=== PATIENT | female | born 1990 | race Caucasian/White ===

== ENCOUNTER 2020-01-19 19:57 | Emergency (ER) | payer MEDICAID ==
--- NOTE | 2020-01-19 20:35 | CR ---
PROCEDURE INFORMATION: Exam: XR Right Ankle Exam date and time: 01/19/2020 8:16 PM Age: 29 years old Clinical indication: Other: Patient ; Additional info: Fall pain TECHNIQUE: Imaging protocol: XR Right ankle. Views: 1 or 2 views. COMPARISON: No relevant prior studies available. FINDINGS: Bones/joints: No acute fracture. No dislocation. Normal bone mineralization. No joint effusion. Joint spaces are maintained. Soft tissues: No soft tissue swelling. No radiopaque foreign body. IMPRESSION: No acute fracture. Followup imaging recommended in 7-14 days if clinical concern for fracture persists.
--- NOTE | 2020-01-19 20:35 | CR ---
PROCEDURE INFORMATION: Exam: XR Right Foot Exam date and time: 01/19/2020 8:15 PM Age: 29 years old Clinical indication: Other: Pain; Additional info: Fall TECHNIQUE: Imaging protocol: XR Right foot. Views: 1 or 2 views. COMPARISON: No relevant prior studies available. FINDINGS: Bones/joints: No acute fracture. No dislocation. Normal bone mineralization. No joint effusion. Joint spaces are maintained. Soft tissues: No soft tissue swelling. No radiopaque foreign body. IMPRESSION: No acute fracture. Followup imaging recommended in 7-14 days if clinical concern for fracture persists.
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
== END 2020-01-19 20:57 | disposition home or self-care (01) ==
LOC: DL.ED 19:57
DX: O9A.212 Injury, poisoning and certain other consequences of external causes complicating pregnancy, second trimester (principal); S93.401A Sprain of unspecified ligament of right ankle, initial encounter; S80.00XA Contusion of unspecified knee, initial encounter; Z3A.24 24 weeks gestation of pregnancy; W19.XXXA Unspecified fall, initial encounter
CPT/HCPCS: 73600-RT; 73620-RT; 99283

== ENCOUNTER 2020-04-30 21:21 | Emergency (ER) | payer MEDICAID ==
--- NOTE | 2020-04-30 22:13 | EDM.PDOC ---
<Talib John - Last Filed: 04/30/20 23:05> ED HPI GENERAL MEDICAL PROBLEM - General Chief Complaint: Lower Extremity Injury/Pain Stated Complaint: LEFT FOOT IS SWOLLEN Time Seen by Provider: 04/30/20 21:30 Source of Information: Reports: Patient History Limitations: Reports: No Limitations - History of Present Illness INITIAL COMMENTS - FREE TEXT/NARRATIVE: Patient is a 30 y/o female who presents to the ED complaining of asymmetric leg swelling, left greater than right. Patient is 38w6d with her eighth child. She has had some bilateral leg swelling for the last week or so. Swelling has been equal on both sides up until tonight when she noticed her left leg was more swollen than the right. She also describes some pain in her mid anterior thigh, described as a soreness, that has now self resolved. She attributes it to sitting wrong. She denies any chest pain. She has been somewhat short of breath with activity, but nothing out of the ordinary for late per her estimation. She does have a history of asthma, required use of her inhaler a couple days ago. She denies any recent periods of prolonged immobilization. Most recent long car trip was at 34w [place], states her stopped every hour so she could ambulate for 15 minutes. No personal history of blood clots. No history of pre-eclampsia with prior pregnancies. She has been feeling adequate movements. Denies any vaginal bleeding or LOF. No headache, vision change, or upper abdominal pain. Takes vitamins, no other meds. 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, Psychiatric History: Reports: Anxiety Hematologic History: Reports: Anemia - Past Surgical History Respiratory Surgical History: Reports: None Dermatological Surgical History: Reports: None Social & Family History - Family History Family Medical History: Noncontributory - Tobacco Use Smoking Status *Q: Never Smoker Second Hand Smoke Exposure: No - Caffeine Use Caffeine Use: Reports: None - Recreational Drug Use Recreational Drug Use: No Review of Systems - Review of Systems Review Of Systems: See Below Constitutional: Denies: Chills, Fever Eyes: Denies: Vision Change Ears: Reports: No Symptoms Nose: Reports: No Symptoms Mouth/Throat: Reports: No Symptoms Respiratory: Reports: Shortness of Breath. Denies: Pleuritic Chest Pain Cardiovascular: Reports: Edema. Denies: Chest Pain GI/Abdominal: Reports: Abdominal Pain. Denies: Constipation, Diarrhea, Nausea, Vomiting Genitourinary: Denies: Dysuria Musculoskeletal: Denies: Leg Pain, Foot Pain Skin: Denies: Rash Neurological: Denies: Headache ED EXAM, GENERAL - Physical Exam Exam: See Below Exam Limited By: No Limitations General Appearance: Alert, WD/WN, No Apparent Distress Eye Exam: Bilateral Eye: EOMI, PERRL Head: Atraumatic, Normocephalic Neck: Supple, Non-Tender Respiratory/Chest: No Respiratory Distress, Lungs Clear, Normal Breath Sounds, No Accessory Muscle Use. No: Crackles, Rales, Rhonchi, Wheezing Cardiovascular: Regular Rate, Rhythm. No: No Murmur, No Rub Peripheral Pulses: 2+: Radial (L), Radial (R), Dorsalis Pedis (L), Dorsalis Pedis (R) GI/Abdominal: Normal Bowel Sounds, Soft, Non-Tender, No Distention, Other (Gravid). No: Guarding Extremities: Normal Range of Motion, Non-Tender, Pedal Edema (1-2+ pretibial pitting edema on left, scant on the right). No: Shabnam's Sign, Leg Pain, Increased Warmth Neurological: Alert, Oriented, Normal Cognition, Normal Reflexes Psychiatric: Normal Affect, Normal Mood Skin Exam: Warm, Dry Course - Re-Assessments/Exams Free Text/Narrative Re-Assessment/Exam: 04/30/20 23:13 Patient updated with US results showing no evidence of DVT. She is reassured and in favor of discharge home. Return criteria discussed. She is discharged home in stable condition. Departure - Departure Time of Disposition: 23:13 Disposition: Home, Self-Care 01 Condition: Good Clinical Impression: Third trimester , Edema of left lower extremity - Discharge Information *PRESCRIPTION DRUG MONITORING PROGRAM REVIEWED*: Not Applicable *COPY OF PRESCRIPTION DRUG MONITORING REPORT IN PATIENT ALEXA: Not Applicable Instructions: Exercise During Forms: ED Department Discharge Sepsis Event Note (ED) - Evaluation Sepsis Screening Result: No Definite Risk - Assessment/Plan Assessment:: Patient has asymmetric pitting edema L>R, venous ultrasound of the left lower extremity was ordered which shows no evidence of deep venous thrombosis. Etiology of edema is undetermined, likely positional compression of venous system related to late stage of . No red flag signs or symptoms that necessitate further workup. Plan: Patient provided reassurance and discharged to home. Discussed signs and symptoms of DVT, return criteria. She voices understanding and agreement and is comfortable with and in favor of discharging home. Follow up with OB provider as scheduled. <Lei Chopra - Last Filed: 04/30/20 23:22> Course - Vital Signs Last Recorded V/S: Last Vital Signs Temp 37.0 C 04/30/20 21:35 Pulse 98 04/30/20 21:35 Resp 20 04/30/20 21:35 BP 128/82 04/30/20 21:35 Pulse Ox 99 04/30/20 21:35 - Re-Assessments/Exams Free Text/Narrative Re-Assessment/Exam: 04/30/20 23:22 I have examined the patient. I have discussed findings and treatment plan with the resident. I agree with the assessment and plan in the following residents note. Sepsis Event Note (ED) - Focused Exam Vital Signs: Vital Signs Temp Pulse Resp BP Pulse Ox 04/30/20 21:35 37.0 C 98 20 128/82 99
--- NOTE | 2020-04-30 22:51 | US ---
PROCEDURE INFORMATION: Exam: US Duplex Left Lower Extremity Veins, Limited Exam date and time: 04/30/2020 10:24 PM Age: 30 years old Clinical indication: Edema, localized; Lower extremity, left; Patient HX: 39w left leg swelling; Additional info: Unilateral pitting edema TECHNIQUE: Imaging protocol: Real-time Duplex ultrasound of the Left Lower Extremity with 2-D kendrick scale, color Doppler flow and spectral waveform analysis with image documentation. Limited exam focused on the left lower extremity veins. COMPARISON: No relevant prior studies available. FINDINGS: Left deep veins: Unremarkable. The common femoral, femoral, proximal profunda femoral and popliteal veins are patent without thrombus. Normal Doppler waveforms. Normal compressibility and/or augmentation response. Left superficial veins: Unremarkable. Saphenofemoral junction is patent without thrombus. Soft tissues: Edema of the subcutaneous tissues of the left leg. IMPRESSION: No evidence of deep vein thrombosis.
== END 2020-04-30 23:24 | disposition home or self-care (01) ==
LOC: DL.ED 21:21
DX: O99.89 Other specified diseases and conditions complicating pregnancy, childbirth and the puerperium (principal); R60.0 Localized edema; O99.513 Diseases of the respiratory system complicating pregnancy, third trimester; J45.909 Unspecified asthma, uncomplicated; Z3A.38 38 weeks gestation of pregnancy
CPT/HCPCS: 93971; 99283-25

== ENCOUNTER 2020-05-03 23:29 | Inpatient (IN) | payer MEDICAID ==
[2020-05-04] MEDS ORDERED: Docusate Sodium 100 MG Cap PO PRN (00:37)
[2020-05-04] MEDS ORDERED: Zolpidem 5 MG Tab PO PRN (00:37)
[2020-05-04] MEDS ORDERED: Misoprostol 400 MCG (4 X 100 MCG TAB) RECTAL PRN (00:37)
[2020-05-04] MEDS ORDERED: Tranexamic Acid 1,000 MG in Sodium Chloride 0.9% 100 ML IV PRN (00:37)
[2020-05-04] MEDS ORDERED: Benzocaine/Menthol 20%-0.5% Spray 56 GM Canister TOP PRN (00:37)
[2020-05-04] MEDS ORDERED: Acetaminophen 325 MG Tab PO PRN (00:37)
[2020-05-04] MEDS ORDERED: Simethicone 80 MG Tab.Chew PO PRN (00:37)
[2020-05-04] MEDS ORDERED: Oxytocin 10 Units/1 ML SDV IM PRN (00:37)
[2020-05-04] MEDS ORDERED: Carboprost Tromethamine 250 MCG/1 ML Amp IM PRN (00:37)
[2020-05-04] MEDS ORDERED: Sodium Chloride 0.9% 10 ML Syringe FLUSH PRN (00:37)
--- NOTE | 2020-05-04 00:49 | PCM.LDHP ---
L&D History of Present Illness - General Date of Service: 05/03/20 Admit Problem/Dx: Admission Diagnosis/Problem Admission Diagnosis/Problem Source of Information: Patient - History of Present Illness Introduction:: Patient is a at 39w2d who presents to L&D for contractions. Contractions started around 6 PM this evening and increased in frequency. She is now adela every 1-2 minutes and feeling pressure. Baby was active throughout the day. She felt a gush of clear fluid around 11:10 PM this evening so decided to come in. Her has been uncomplicated. She is GBS negative. 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 All were delivered vaginally. Psychiatric History: Reports: Anxiety Hematologic History: Reports: Anemia - Past Surgical History HEENT Surgical History: Reports: Adenoidectomy, Tonsillectomy Respiratory Surgical History: Reports: None Female Surgical History: Reports: D&C Other Female Surgeries/Procedures: laparoscopy for endometriosis Dermatological Surgical History: Reports: None Social & Family History - Family History Family Medical History: Noncontributory Cardiac: Reports: Hypertension Oncologic: Reports: Breast, Ovarian - Tobacco Use Smoking Status *Q: Never Smoker - Caffeine Use Caffeine Use: Reports: None - Alcohol Use Alcohol Use History: No - Recreational Drug Use Recreational Drug Use: No Drug Use in Last 12 Months: No - Living Situation & Occupation 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 Denies: Lightheadedness Gastrointestinal: Denies: Diarrhea, Nausea, Vomiting Neurological: Denies: Dizziness, Headache, Numbness, Weakness L&D Exam - Exam Exam: See Below - OB Specific Contraction Intensity: Moderate to Strong Movement: Active Heart Tones: Present Heart Rate (FHR) Variability: Moderate (6-25 bmp) - Dia Score Dia Score Cervix Position: Anterior Dia Score Consistency: Soft Dia Score Effacement: >80% - Exam General: Alert, Oriented HEENT: Conjunctiva Clear, Posterior Pharynx Clear, Pupils Equal Neck: Supple, Trachea Midline Lungs: Clear to Auscultation, Normal Respiratory Effort Cardiovascular: Regular Rate, Regular Rhythm GI/Abdominal Exam: Soft, No Distention Extremities: Non-Tender, Pedal Edema (Minimal) Skin: Warm, Intact Neurological: Reflexes Equal Bilateral - Patient Data Lab Results Last 24 hrs: Laboratory Results - last 24 hr 05/04/20 Range/Units 00:00 WBC 9.9 (5.0-10.0) 10^3/uL RBC 4.34 (4.2-5.4) 10^6/uL Hgb 11.0 L (12.0-16.0) g/dL Hct 34.5 L (37.0-47.0) % MCV 79.5 L (80-100) fL MCH 25.3 L (27.0-34.0) pg MCHC 31.9 L (33.0-35.0) g/dL Plt Count 252 (150-450) 10^3/uL Result Diagrams: 05/04/20 00:00 - Problem List (1) History of oligohydramnios SNOMED Code(s): 993786536 ICD Code: Z87.59 - PERSONAL HISTORY OF COMP OF PREG, CHLDBRTH AND THE PUERP Status: Acute (2) History of prior with IUGR SNOMED Code(s): 882052742 ICD Code: Z87.59 - PERSONAL HISTORY OF COMP OF PREG, CHLDBRTH AND THE PUERP Status: Acute (3) History of delivery SNOMED Code(s): 031423148 ICD Code: Z87.51 - PERSONAL HISTORY OF PRE-TERM LABOR Status: Acute (4) History of cholestasis during SNOMED Code(s): 85202174777057793 ICD Code: Z87.59 - PERSONAL HISTORY OF COMP OF PREG, CHLDBRTH AND THE PUERP; Z87.19 - PERSONAL HISTORY OF OTHER DISEASES OF THE DIGESTIVE SYSTEM Status: Acute (5) Grand multipara SNOMED Code(s): 81175409 ICD Code: Z64.1 - PROBLEMS RELATED TO MULTIPARITY Status: Acute (6) Rubella immune SNOMED Code(s): 067015400 ICD Code: Z78.9 - OTHER SPECIFIED HEALTH STATUS Status: Acute (7) Rh negative, delivered, current hospitalization SNOMED Code(s): 160251080, 369342673 ICD Code: O26.899 - OTH RELATED CONDITIONS, UNSPECIFIED TRIMESTER; Z67.91 - UNSPECIFIED BLOOD TYPE, RH NEGATIVE Status: Acute (8) Anemia affecting SNOMED Code(s): 86258397 ICD Code: O99.019 - ANEMIA COMPLICATING , UNSPECIFIED TRIMESTER Status: Acute Problem List Initiated/Reviewed/Updated: Yes Orders Last 24hrs: Active Orders 24 hr Category Date Time Status Notify Provider Vital Signs OB [RC] ASDIRECTED Care 05/04/20 00:38 Ordered Up ad [place] [RC] ASDIRECTED Care 05/04/20 00:37 Ordered Vital Signs [RC] PFP Care 05/04/20 00:15 Ordered Regular Diet [DIET] Diet 05/04/20 Breakfast Ordered Regular Diet [DIET] Diet 05/04/20 Dinner Ordered Regular Diet [DIET] Diet 05/04/20 Lunch Ordered CBC W/O DIFF,HEMOGRAM [HEME] Routine Lab 05/04/20 00:38 Ordered CORONAVIRUS COVID-19 RAPID [MOLEC] Routine Lab 05/04/20 00:00 Received Acetaminophen [TylenoL] Med 05/04/20 00:37 Ordered 650 mg PO Q6H PRN Benzocaine/Menthol [Dermoplast Pain Relief Lane] Med 05/04/20 00:37 Ordered See Dose Instructions TOP Q4H PRN Carboprost Tromethamine [Hemabate DS] Med 05/04/20 00:37 Ordered 250 mcg IM ASDIRECTED PRN Docusate Sodium [Colace] Med 05/04/20 00:37 Ordered 100 mg PO BID PRN Ibuprofen [Motrin] Med 05/04/20 00:37 Ordered 800 mg PO Q8H PRN Oxytocin [Pitocin] Med 05/04/20 00:37 Ordered 10 unit IM ONETIME PRN Vit with Ca/FA/Iron [ Plus Iron] Med 05/04/20 09:00 Ordered 1 each PO DAILY Simethicone Med 05/04/20 00:37 Ordered 80 mg PO Q4H PRN Sodium Chloride 0.9% [Saline Flush] Med 05/04/20 00:37 Ordered 10 ml FLUSH ASDIRECTED PRN Tranexamic Acid [Cyklokapron] 1,000 mg Med 05/04/20 00:37 Ordered Sodium Chloride 0.9% [Normal Saline] 100 ml IV ONETIME Zolpidem [Ambien] Med 05/04/20 00:37 Ordered 5 mg PO BEDTIME PRN miSOPROStoL [Cytotec] Med 05/04/20 00:37 Ordered 800 mcg RECTAL ONETIME PRN witch Ryan [Medi-Pads] Med 05/04/20 00:37 Ordered 1 each TOP Q4HR PRN Assess Lochia [WOMSER] Per Unit Routine Oth 05/04/20 00:37 Ordered Assess Uterine Involution [WOMSER] Per Unit Routine Oth 05/04/20 00:37 Ordered Breast Pump [WOMSER] Per Unit Routine Oth 05/04/20 00:37 Ordered Ice Therapy [OM.PC] Per Unit Routine Oth 05/04/20 00:37 Ordered Perineal Care [OM.PC] Per Unit Routine Oth 05/04/20 00:37 Ordered Saline Lock Insert [OM.PC] Urgent Oth 05/04/20 00:37 Ordered Sitz Bath [OM.PC] Per Unit Routine Oth 05/04/20 00:37 Ordered Resuscitation Status Routine Resus Stat 05/04/20 00:37 Ordered Assessment/Plan Comment:: Admit to L&D. Patient progressed quickly, COVID test still pending. Patient did deliver healthy baby boy in triage room. See delivery note for further details. She did have an IV in and pitocin was started immediately after placenta delivered. Patient and baby transferred to regular room. Manisha Orellana MD
--- NOTE | 2020-05-04 00:57 | PCM.DEL ---
L & D Note - General Info Date of Service: 05/04/20 - Delivery Note Labor: Spontaneous Delivery Outcome: Livebirth Delivery Method: Spontaneous Vaginal Delivery-Single Presentation: Left Occiput Anterior (JEANNIE) Nuchal Cord: None Anesthesia Type: None Amniotic Fluid Description: Clear Laceration: None Placenta: Intact, Spontaneous Cord: 3 Vessels Estimated Blood Loss: 150 [place]: Bulb Syringe Score 1 min: 9 Delivery Comments (Free Text/Narrative):: Patient presents to L&D in active labor. Found to be 7/100/-1 on admission. An IV was placed. COVID test was collected and still pending so patient remained in triage room.She quickly progress to complete and was upon entering her room. A viable male infant was delivered over intact perineum. Apgars were 9 and 9. weight was 9 lbs 6 oz (LGA). The anterior shoulder was delivered with gentle traction. The infant was placenta the maternal abdomen and the cord was clamped and cut. Placenta was delivered intact via active management. Oxytocin was initiated immediately following the delivery of the placenta. Cervix, vagina, and perineum were explored and were found to be intact. Mother and were stable and remained in room. They were moved into regular room shortly after. - General Info Date of Service: 05/04/20 - Patient Data Lab Results Last 24 Hours: Laboratory Results - last 24 hr 05/04/20 Range/Units 00:00 WBC 9.9 (5.0-10.0) 10^3/uL RBC 4.34 (4.2-5.4) 10^6/uL Hgb 11.0 L (12.0-16.0) g/dL Hct 34.5 L (37.0-47.0) % MCV 79.5 L (80-100) fL MCH 25.3 L (27.0-34.0) pg MCHC 31.9 L (33.0-35.0) g/dL Plt Count 252 (150-450) 10^3/uL Med Orders - Current: Current Medications Acetaminophen (Tylenol) 650 mg PO Q6H PRN PRN Reason: mild pain or fever Benzocaine/Menthol (Dermoplast Pain Relief [place]) 0 gm TOP Q4H PRN PRN Reason: Perineal comfort measures Carboprost Tromethamine (Hemabate Ds) 250 mcg IM ASDIRECTED PRN PRN Reason: Excessive vaginal bleeding Docusate Sodium (Colace) 100 mg PO BID PRN PRN Reason: Constipation Tranexamic Acid 1,000 mg/ (Sodium Chloride) 110 mls @ 660 mls/hr IV ONETIME PRN PRN Reason: Bleeding Ibuprofen (Motrin) 800 mg PO Q8H PRN PRN Reason: Mild Pain or Fever Misoprostol (Cytotec) 800 mcg RECTAL ONETIME PRN PRN Reason: Hemorrhage Oxytocin (Pitocin) 10 unit IM ONETIME PRN PRN Reason: Bleeding Prenat Multivit/[place]/Iron/Folic Ac ( Plus Iron) 1 each PO DAILY DARRON Simethicone (Simethicone) 80 mg PO Q4H PRN PRN Reason: Gas Sodium Chloride (Saline Flush) 10 ml FLUSH ASDIRECTED PRN PRN Reason: Keep Vein Open Witch Maribell (Medi-Pads) 1 each TOP Q4HR PRN PRN Reason: Perineal Comfort Measure Zolpidem Tartrate (Ambien) 5 mg PO BEDTIME PRN PRN Reason: Insomnia - Problem List & Annotations (1) History of oligohydramnios SNOMED Code(s): 448255518 Code(s): Z87.59 - PERSONAL HISTORY OF COMP OF PREG, CHLDBRTH AND THE PUERP Status: Acute (2) History of prior with IUGR SNOMED Code(s): 350205923 Code(s): Z87.59 - PERSONAL HISTORY OF COMP OF PREG, CHLDBRTH AND THE PUERP Status: Acute (3) History of delivery SNOMED Code(s): 452342598 Code(s): Z87.51 - PERSONAL HISTORY OF PRE-TERM LABOR Status: Acute (4) History of cholestasis during SNOMED Code(s): 29654397810598650 Code(s): Z87.59 - PERSONAL HISTORY OF COMP OF PREG, CHLDBRTH AND THE PUERP; Z87.19 - PERSONAL HISTORY OF OTHER DISEASES OF THE DIGESTIVE SYSTEM Status: Acute (5) Grand multipara SNOMED Code(s): 07205101 Code(s): Z64.1 - PROBLEMS RELATED TO MULTIPARITY Status: Acute (6) Rubella immune SNOMED Code(s): 256065138 Code(s): Z78.9 - OTHER SPECIFIED HEALTH STATUS Status: Acute (7) Rh negative, delivered, current hospitalization SNOMED Code(s): 415884072, 136830973 Code(s): O26.899 - OTH RELATED CONDITIONS, UNSPECIFIED TRIMESTER; Z67.91 - UNSPECIFIED BLOOD TYPE, RH NEGATIVE Status: Acute (8) Anemia affecting SNOMED Code(s): 20290153 Code(s): O99.019 - ANEMIA COMPLICATING , UNSPECIFIED TRIMESTER Status: Acute - Problem List Review Problem List Initiated/Reviewed/Updated: Yes - My Orders Last 24 Hours: My Active Orders 05/04/20 00:15 Vital Signs [RC] PFP 05/04/20 00:37 Up ad Alona [RC] ASDIRECTED Acetaminophen [TylenoL] 650 mg PO Q6H PRN Benzocaine/Menthol [Dermoplast Pain Relief [place]] See Dose Instructions TOP Q4H PRN Carboprost Tromethamine [Hemabate DS] 250 mcg IM ASDIRECTED PRN Docusate Sodium [Colace] 100 mg PO BID PRN Ibuprofen [Motrin] 800 mg PO Q8H PRN Oxytocin [Pitocin] 10 unit IM ONETIME PRN Simethicone 80 mg PO Q4H PRN Sodium Chloride 0.9% [Saline Flush] 10 ml FLUSH ASDIRECTED PRN Tranexamic Acid [Cyklokapron] 1,000 mg Sodium Chloride 0.9% [Normal Saline] 100 ml IV ONETIME Zolpidem [Ambien] 5 mg PO BEDTIME PRN miSOPROStoL [Cytotec] 800 mcg RECTAL ONETIME PRN witch [place] [Medi-Pads] 1 each TOP Q4HR PRN Assess Lochia [WOMSER] Per Unit Routine Assess Uterine Involution [WOMSER] Per Unit Routine Breast Pump [WOMSER] Per Unit Routine Ice Therapy [OM.PC] Per Unit Routine Perineal Care [OM.PC] Per Unit Routine Saline Lock Insert [OM.PC] Urgent Sitz Bath [OM.PC] Per Unit Routine Resuscitation Status Routine 05/04/20 00:38 Notify Provider Vital Signs OB [RC] ASDIRECTED 05/04/20 Breakfast Regular Diet [DIET] 05/04/20 09:00 Vit with Ca/FA/Iron [ Plus Iron] 1 each PO DAILY 05/04/20 Lunch Regular Diet [DIET] 05/04/20 Dinner Regular Diet [DIET]
[2020-05-04] MEDS ORDERED: Lactated Ringers 1,000 ML IV SCH (04:45)
[2020-05-04] MEDS ORDERED: Oxytocin/Normal Saline 30 UNIT/500 ML BAG IV SCH (04:45)
[2020-05-04] MEDS: Ibuprofen 800 MG Tab PO PRN ×2 (08:50→17:07)
--- NOTE | 2020-05-04 09:47 | PCM.PNPP ---
- General Info Date of Service: 05/04/20 Subjective Update: Patient is a who is post day 0 from spontaneous vaginal delivery at 39w3d. She is doing well this morning. She is urinating spontaneously. She is passing gas. She is tolerating oral intake. Her pain is well controlled with OTC medications. Her lochia is mild and decreasing. She's had no fever, chills, nausea, vomiting. She is . Feels baby is latching well. Functional Status: Reports: Pain Controlled - Review of Systems General: Denies: Fever, Chills HEENT: Denies: Headaches, Visual Changes Pulmonary: Denies: Shortness of Breath, Cough Cardiovascular: Denies: Edema, Lightheadedness Gastrointestinal: Denies: Constipation, Diarrhea, Nausea, Vomiting Neurological: Denies: Dizziness, Headache, Numbness - Patient Data Vital Signs - Most Recent: Last Vital Signs Temp 97.7 F 05/04/20 08:00 Pulse 80 05/04/20 08:00 Resp 18 05/04/20 08:00 BP 124/67 05/04/20 08:00 Pulse Ox 99 05/04/20 08:00 Weight - Most Recent: 205 lb Lab Results - Last 24 Hours: Laboratory Results - last 24 hr 05/04/20 05/04/20 Range/Units 00:00 00:00 WBC 9.9 (5.0-10.0) 10^3/uL RBC 4.34 (4.2-5.4) 10^6/uL Hgb 11.0 L (12.0-16.0) g/dL Hct 34.5 L (37.0-47.0) % MCV 79.5 L (80-100) fL MCH 25.3 L (27.0-34.0) pg MCHC 31.9 L (33.0-35.0) g/dL Plt Count 252 (150-450) 10^3/uL SARS CoV-2 RNA Rapid NATASHA Negative (NEGATIVE) Med Orders - Current: Current Medications Acetaminophen (Tylenol) 650 mg PO Q6H PRN PRN Reason: mild pain or fever Benzocaine/Menthol (Dermoplast Pain Relief [place]) 0 gm TOP Q4H PRN PRN Reason: Perineal comfort measures Last Admin: 05/04/20 04:54 Dose: 1 applic Documented by: Carboprost Tromethamine (Hemabate Ds) 250 mcg IM ASDIRECTED PRN PRN Reason: Excessive vaginal bleeding Docusate Sodium (Colace) 100 mg PO BID PRN PRN Reason: Constipation Last Admin: 05/04/20 08:50 Dose: 100 mg Documented by: Tranexamic Acid 1,000 mg/ (Sodium Chloride) 110 mls @ 660 mls/hr IV ONETIME PRN PRN Reason: Bleeding Lactated Ringer's (Ringers, Lactated) 1,000 mls @ 125 mls/hr IV ASDIRECTED DARRON Last Admin: 05/03/20 23:50 Dose: 125 mls/hr Documented by: Oxytocin/Sodium Chloride (Pitocin In Ns 30 Unit/500 Ml) 30 unit in 500 mls @ 2 mls/hr IV TITRATE DARRON; Protocol Last Titration: 05/04/20 03:05 Dose: 0 munits/min, 0 mls/hr Documented by: Ibuprofen (Motrin) 800 mg PO Q8H PRN PRN Reason: Mild Pain or Fever Last Admin: 05/04/20 08:50 Dose: 800 mg Documented by: Misoprostol (Cytotec) 800 mcg RECTAL ONETIME PRN PRN Reason: Hemorrhage Oxytocin (Pitocin) 10 unit IM ONETIME PRN PRN Reason: Bleeding Prenat Multivit/New Vehicle Sales Consultant/Iron/Folic Ac ( Plus Iron) 1 each PO DAILY DARRON Simethicone (Simethicone) 80 mg PO Q4H PRN PRN Reason: Gas Sodium Chloride (Saline Flush) 10 ml FLUSH ASDIRECTED PRN PRN Reason: Keep Vein Open Witch Maribell (Medi-Pads) 1 each TOP Q4HR PRN PRN Reason: Perineal Comfort Measure Last Admin: 05/04/20 04:57 Dose: 1 applic Documented by: Zolpidem Tartrate (Ambien) 5 mg PO BEDTIME PRN PRN Reason: Insomnia - Infant Interaction Support Person: - Recovery Exam Fundal Tone: Firm Fundal Level: At Umbilicus Fundal Placement: Midline Lochia Amount: Scant Lochia Color: Rubra/Red Perineum Description: Intact, Minimal Bruising/Swelling Episiotomy/Laceration: None Bladder Status: Nonpalpable, Voiding - Exam General: Alert, Oriented HEENT: Pupils Equal, Mucous Membr. Moist/[place] Neck: Supple Lungs: Clear to Auscultation, Normal Respiratory Effort Cardiovascular: Regular Rate, Regular Rhythm GI/Abdominal Exam: Soft, Non-Tender, No Distention Extremities: Normal Inspection, Non-Tender, No Pedal Edema, Normal Capillary Refill Skin: Warm, Dry, Intact Neurological: No New Focal Deficit - Problem List & Annotations (1) History of oligohydramnios SNOMED Code(s): 159371693 Code(s): Z87.59 - PERSONAL HISTORY OF COMP OF PREG, CHLDBRTH AND THE PUERP Status: Acute (2) History of prior with IUGR SNOMED Code(s): 965520867 Code(s): Z87.59 - PERSONAL HISTORY OF COMP OF PREG, CHLDBRTH AND THE PUERP Status: Acute (3) History of delivery SNOMED Code(s): 809147700 Code(s): Z87.51 - PERSONAL HISTORY OF PRE-TERM LABOR Status: Acute (4) History of cholestasis during SNOMED Code(s): 30540934198054522 Code(s): Z87.59 - PERSONAL HISTORY OF COMP OF PREG, CHLDBRTH AND THE PUERP; Z87.19 - PERSONAL HISTORY OF OTHER DISEASES OF THE DIGESTIVE SYSTEM Status: Acute (5) Grand multipara SNOMED Code(s): 97260878 Code(s): Z64.1 - PROBLEMS RELATED TO MULTIPARITY Status: Acute (6) Rubella immune SNOMED Code(s): 454453345 Code(s): Z78.9 - OTHER SPECIFIED HEALTH STATUS Status: Acute (7) Rh negative, delivered, current hospitalization SNOMED Code(s): 291056054, 587905758 Code(s): O26.899 - OTH RELATED CONDITIONS, UNSPECIFIED TRIMESTER; Z67.91 - UNSPECIFIED BLOOD TYPE, RH NEGATIVE Status: Acute (8) Anemia affecting SNOMED Code(s): 32218292 Code(s): O99.019 - ANEMIA COMPLICATING , UNSPECIFIED TRIMESTER Status: Acute (9) Normal spontaneous vaginal delivery SNOMED Code(s): 10873559, 918465495 Code(s): O80 - ENCOUNTER FOR FULL-TERM UNCOMPLICATED DELIVERY Status: Acute - Problem List Review Problem List Initiated/Reviewed/Updated: Yes - My Orders Last 24 Hours: My Active Orders 05/03/20 23:15 EFM [ Heart Rate] [RC] Click to Edit OB Check [OM.PC] Click To Edit 05/04/20 00:15 Vital Signs [RC] 05/04/20 00:37 Up ad [place] [RC] ASDIRECTED Acetaminophen [TylenoL] 650 mg PO Q6H PRN Benzocaine/Menthol [Dermoplast Pain Relief [place]] See Dose Instructions TOP Q4H PRN Carboprost Tromethamine [Hemabate DS] 250 mcg IM ASDIRECTED PRN Docusate Sodium [Colace] 100 mg PO BID PRN Ibuprofen [Motrin] 800 mg PO Q8H PRN Oxytocin [Pitocin] 10 unit IM ONETIME PRN Simethicone 80 mg PO Q4H PRN Sodium Chloride 0.9% [Saline Flush] 10 ml FLUSH ASDIRECTED PRN Tranexamic Acid [Cyklokapron] 1,000 mg Sodium Chloride 0.9% [Normal Saline] 100 ml IV ONETIME Zolpidem [Ambien] 5 mg PO BEDTIME PRN miSOPROStoL [Cytotec] 800 mcg RECTAL ONETIME PRN witch Maribell [Medi-Pads] 1 each TOP Q4HR PRN Assess Lochia [WOMSER] Per Unit Routine Assess Uterine Involution [WOMSER] Per Unit Routine Breast Pump [WOMSER] Per Unit Routine Ice Therapy [OM.PC] Per Unit Routine Perineal Care [OM.PC] Per Unit Routine Saline Lock Insert [OM.PC] Urgent Sitz Bath [OM.PC] Per Unit Routine Resuscitation Status Routine 05/04/20 00:38 Notify Provider Vital Signs OB [RC] ASDIRECTED 05/04/20 04:42 Patient Status [ADT] Routine 05/04/20 04:45 Lactated Ringers [Ringers, Lactated] 1,000 ml IV ASDIRECTED Oxytocin/Normal Saline [Pitocin in NS 30 UNIT/500 ML] 30 unit in 500 ml IV TITRATE 05/04/20 Breakfast Regular Diet [DIET] 05/04/20 09:00 Vit with Ca/FA/Iron [ Plus Iron] 1 each PO DAILY 05/04/20 Lunch Regular Diet [DIET] 05/04/20 Dinner Regular Diet [DIET] - Plan Plan:: Continue post cares. Start iron supplements. Patient is , feels baby is feeding well. Pain is controlled. O negative, Rh eval ordered. Anticipate discharge home tomorrow. Dr. Boudreaux to resume care. Manisha Orellana MD
[2020-05-04] MEDS: Prenatal Multivitamin with Calcium/Folic Acid/Iron Tab PO SCH (10:16)
[2020-05-05] MEDS: Ibuprofen 800 MG Tab PO PRN (08:30)
[2020-05-05] MEDS: Prenatal Multivitamin with Calcium/Folic Acid/Iron Tab PO SCH (08:33)
--- NOTE | 2020-05-06 11:41 | DISCH ---
ADMITTING DIAGNOSES: 1. 39-2/7 weeks' gestation. 2. 9, para 3-4-1-7. 3. Grand multiparous patient. 4. Anemia of . 5. History of precipitous labor and delivery. 6. Blood type O positive, rubella immune, group B Streptococcus negative. 7. Anxiety. 8. High-risk due to history of oligohydramnios, intrauterine growth restriction, macrosomic infant, intrahepatic cholestasis of , and delivery with prior pregnancies. DISCHARGE DIAGNOSES: 1. 39-2/7 weeks' gestation. 2. 9, para 4-4-1-8. 3. Grand multiparous patient. 4. Anemia of . 5. History of precipitous labor and delivery. 6. Blood type O positive, rubella immune, group B Streptococcus negative. 7. Anxiety. 8. High-risk due to history of oligohydramnios, intrauterine growth restriction, macrosomic , intrahepatic cholestasis of , and delivery with prior pregnancies. 9. Precipitous spontaneous vaginal delivery. 10.Status post RhoGAM injection. BRIEF HISTORY: A 30-year-old female with the above-listed diagnoses presented to the hospital after approximately 5 hours of labor, found to be 7 to 8 cm dilated. Delivering physician had time to quickly change clothes before the patient was and she had an uncomplicated spontaneous vaginal delivery. See delivery notes for full details. Everything reportedly went well. Baby is a baby boy. scores of 9 and 9. weight 4260 g. COVID testing was negative. Admission hemoglobin was 11.0 and platelets of 252. HOSPITAL COURSE: Good. Since delivery, she has been ambulating, tolerating regular diet. No chest pain. No shortness of breath. No preeclampsia symptoms. Bleeding has been well controlled. seems to be going well, and she is ready to be discharged home. DISCHARGE CONDITION: Good. PHYSICAL EXAMINATION: Vital Signs: Temperature is 98.5, pulse 84, blood pressure 130/77, respiratory rate of 16, O2 saturation 99% on room air. Heart: Regular without murmur. Lungs: Clear to auscultation bilaterally. Abdomen: Soft, nontender. Fundus is firm and below the umbilicus. Extremities: No edema, erythema, or tenderness noted. DISPOSITION: Home with family. INSTRUCTIONS: Routine post vaginal delivery instructions for mother were provided. She understands to return if she has any fever, chills, foul-smelling drainage, discharge, uterine tenderness, hemorrhage, or any other complications develop. MEDICATIONS: Tylenol 650 mg every 6 hours as needed for pain, ibuprofen 800 mg every 8 hours as needed for pain, iron 325 mg twice daily, vitamin C 500 mg twice daily, Colace 100 mg twice daily as needed for constipation, and vitamin once daily. The patient did receive her RhoGAM injection as baby's blood type was O positive. [facility] /[id number]
== END 2020-05-05 14:00 | disposition home or self-care (01) | DRG 807 ==
LOC: DL.OBCHECK 23:29 → DL.OB 05-04 00:05 → OBSVTOIN 05-04 00:13
PROVIDERS: ADMIT Family Medicine; ATTEND Family Medicine
PROC: 10E0XZZ Delivery of Products of Conception, External Approach (ICD-10-PCS; principal; 2020-05-04)
DX: O62.3 Precipitate labor (principal); Z37.0 Single live birth; Z3A.39 39 weeks gestation of pregnancy; O99.02 Anemia complicating childbirth; D64.9 Anemia, unspecified; Z20.828 Contact with and (suspected) exposure to other viral communicable diseases; O26.893 Other specified pregnancy related conditions, third trimester; Z67.41 Type O blood, Rh negative; Z87.51 Personal history of pre-term labor; Z87.59 Personal history of other complications of pregnancy, childbirth and the puerperium
CPT/HCPCS: 36415; 85027; 85461; 86850; 86870; 86900; 86901; A9270-GY; J2590; J2790; J7120; U0002